=== PATIENT | male | born 1955 | race Caucasian/White ===

== ENCOUNTER → 2024-11-18 09:24 | Outpatient (REF) | payer MEDICARE, SELFPAY | LOC: RAD 09:24 | PROVIDERS: ATTENDING PHYSICIAN Family Medicine | DX: M54.50 Low back pain, unspecified (principal) | CPT/HCPCS: 72110; 72170 ==

== ENCOUNTER → 2025-01-21 08:49 | Outpatient (REF) | payer MEDICARE, SELFPAY | LOC: DHSLP 08:49 | PROVIDERS: ATTENDING PHYSICIAN Internal Medicine Critical Care Medicine; FAMILY PHYSICIAN Family Medicine | DX: G47.33 Obstructive sleep apnea (adult) (pediatric) (principal) | CPT/HCPCS: 95800 ==